=== PATIENT | female | born 1990 | race Caucasian/White ===

== ENCOUNTER 2024-11-15 20:26 | Emergency (ER) | payer MEDICAID ==
[~2024-11-15] VITALS: Ht 152.4 cm; Wt 57.2 kg
[2024-11-15 20:29] VITALS: O2SAT 98
[2024-11-15] MEDS ORDERED: IBUPROFEN 800MG TABLET PO ONE (20:45)
[2024-11-15 22:13] VITALS: BP 109/62; PULSE 65; RESP 14; TEMP 36.8; O2SAT 98
== END 2024-11-15 22:12 | disposition home or self-care (01) ==
LOC: ER 20:26
DX: S40.011A Contusion of right shoulder, initial encounter (principal); Y09 Assault by unspecified means; Y93.89 Activity, other specified; Y92.89 Other specified places as the place of occurrence of the external cause; Y99.8 Other external cause status
CPT/HCPCS: 73030; 73080; 99284